=== PATIENT | female | born 1965 | race Caucasian/White ===

== ENCOUNTER 2017-11-15 06:08 | Day surgery (SDC) | payer OTHER ==
[~2017-11-15 06:08] MED LIST: LIDOCAINE 1% MDV 20ML VIAL SQ
[2017-11-15] MEDS: LR 1,000 ML IV (07:00)
[2017-11-15] MEDS ORDERED: LIDOCAINE 2% INJ 100 MG/5 ML SDV (FOR ANES.) As Ordered (07:36)
[2017-11-15] MEDS ORDERED: MIDAZOLAM INJ 2 MG/2 ML VIAL (J2250) As Ordered (07:36)
[2017-11-15] MEDS ORDERED: fentaNYL 100 MCG/2 ML INJECTION (J3010) As Ordered (07:36)
[2017-11-15] MEDS ORDERED: PROPOFOL 200 MG/20 ML VIAL As Ordered (07:36)
[2017-11-15] MEDS ORDERED: ONDANSETRON 4MG/2ML VIAL (J2405) As Ordered (07:36)
[2017-11-15] MEDS: LIDOCAINE 1% MDV 20ML VIAL As Ordered (07:39)
[2017-11-15] MEDS: BUPIVACAINE HCL 0.5% 10 ML VIAL As Ordered (07:39)
[2017-11-15] MEDS: dexameTHASONE 4 MG/ML 1ML VIAL (J1100) As Ordered (08:05)
== END 2017-11-15 09:15 | disposition home or self-care (01) ==
LOC: M SDC 06:08
DX: G57.81 Other specified mononeuropathies of right lower limb (principal); M54.5 Low back pain; G43.909 Migraine, unspecified, not intractable, without status migrainosus; Z79.899 Other long term (current) drug therapy; Z79.52 Long term (current) use of systemic steroids; Z98.51 Tubal ligation status; Z78.0 Asymptomatic menopausal state; Z87.891 Personal history of nicotine dependence
CPT/HCPCS: 64704

== ENCOUNTER → 2018-09-12 | Outpatient (REF) | payer MEDICARE ==
[~2018-09-12] MED LIST changes: +ACET30TAB PO; -LIDOCAINE 1% MDV 20ML VIAL SQ; +NAPR-885; +PRED10TA2; +SUMA100T2; +TOPA50TA8 PO
== END ==
LOC: M SFHCPLAZ 10:14
PROVIDERS: ATTEND Internal Medicine Rheumatology
DX: M25.50 Pain in unspecified joint (principal); Z53.8 Procedure and treatment not carried out for other reasons